=== PATIENT | female | born 1960 | race Caucasian/White ===

== ENCOUNTER 2016-12-28 10:08 | Emergency (ER) | payer OTHER ==
[~2016-12-28] VITALS: Ht 165.1 cm; Wt 80.3 kg
[~2016-12-28 10:08] MED LIST: PROZ20CA11 PO
[2016-12-28 10:18] VITALS: BP 112/67; PULSE 62; RESP 15; TEMP 98.7; O2SAT 95
[2016-12-28 10:42] LABS: BLOOD, URINE NEG (NEG); GLUCOSE,URINE NEG (NEG); KETONE, URINE NEG (NEG); NITRITE,URINE NEG (NEG); PH, URINE 6.5 (5.0-8.5)
[2016-12-28] MEDS ORDERED: KETOROLAC TROMETHAMINE 60 MG/2 ML (IM) VIAL IM ONE (10:45)
--- NOTE | 2016-12-28 10:46 | PD ---
HPI Chief Complaint: Pain: Acute or Chronic Time Seen by Provider: 10:33 Travel History International Travel<30 days: No Contact w/Intl Traveler<30days: No Traveled to known affect area: No History of Present Illness HPI 56-year-old female here with complaint of low back pain. Patient has had 3 days of a crampy, pressure in the low back. She denies any new heavy lifting, straining though the symptoms are made slightly worse with range of motion. Patient states that she has had some urinary frequency, hesitancy. No dysuria, hematuria. She denies any pain in the flank, nausea or vomiting. History of urinary tract infections in the past and states that she also didn't have very many symptoms with them previously. PFSH Past Medical History Depression: Yes Cancer: No Diabetes: No Diminished Hearing: No Hepatitis: No Hiatal Hernia: No Thyroid Disease: No ?: Not LMP: [employer] Menopausal: Yes Tubal Ligation: Yes Past Surgical History Abdominal Surgery: Yes (LAPAROSCOPIC TUBAL LIGATION) Cardiac Surgery: No Ear Surgery: No Endocrine Surgery: No Eye Surgery: No Genitourinary Surgery: No Gynecologic Surgery: Yes (TUBAL LIGATION) Oral Surgery: Yes (ADENOIDECTOMY) Pacemaker: No Thoracic Surgery: Yes (SANDRO BREAST AUGMENTATION) Tonsillectomy: Yes (ADENOIDS) Other Surgery: Yes (BREAST IMPLANTS) Social History Alcohol Use: Yes (3X PER WK) Tobacco Use: Yes (1/2 TO 3/4 PPD) Substance Use: No Allergies-Medications (Allergen,Severity, Reaction): Coded Allergies: No Known Allergies (Verified , 12/28/16) Reported Meds & Prescriptions Reported Meds & Active Scripts Active Pyridium (Phenazopyridine HCl) 200 Mg Tab 200 Mg PO Q8H PRN Macrobid (Nitrofurantoin Monoh/Nitrofur Macro) 100 Mg Cap 100 Mg PO BID 7 Days Review of Systems Except as stated in HPI: all other systems reviewed are Neg Physical Exam Narrative GENERAL: Well-appearing female in mild distress SKIN: Warm and dry. HEAD: Normocephalic. EYES: No scleral icterus. No injection or drainage. ENT: Mucous membranes pink and moist. NECK: Supple CARDIOVASCULAR: Regular rate and rhythm. RESPIRATORY: No accessory muscle use. GASTROINTESTINAL: Abdomen soft, non-tender, nondistended. Hepatic and splenic margins not palpable. No CVA tenderness to palpation MUSCULOSKELETAL: No tenderness to palpation in the midline cervical, thoracic, lumbar spine. No reproducible tenderness to palpation of the low back, but patient's pain is made slightly worse with movement NEUROLOGICAL: Awake and alert. 5 out of 5 strength and normal gait. Normal speech. PSYCHIATRIC: Appropriate mood and affect; insight and judgment normal. Data Data Last Documented VS Vital Signs Date Time Temp Pulse Resp B/P Pulse Ox O2 Delivery O2 Flow Rate FiO2 12/28/16 10:18 98.7 62 15 112/67 95 Orders Urinalysis - C+S If Indicated (12/28/16 10:21) Ketorolac Inj (Toradol Inj) (12/28/16 10:45) Urine Culture (12/28/16 10:28) Labs Laboratory Tests Test 12/28/16 10:28 Urine Collection Type CLEAN CATCH Urine Color YELLOW Urine Turbidity SLIGHT Urine pH 6.5 Urine Specific [place] 1.017 Urine Protein NEG mg/dL Urine Glucose (UA) NEG mg/dL Urine Ketones NEG mg/dL Urine Occult Blood NEG Urine Nitrite NEG Urine Bilirubin NEG Urine Leukocyte Esterase SMALL Urine RBC 0-3 /hpf Urine WBC 15-19 /hpf Urine Squamous Epithelial > 8 /hpf Cells Urine Bacteria MANY /hpf Microscopic Urinalysis Comment CULTURE INDICATED Urine Collection Time 10:28 [facility] Medical Decision Making Medical Screen Exam Complete: Yes Emergency Medical Condition: Yes Medical Record Reviewed: Yes Differential Diagnosis 56-year-old female here with complaint of 2-3 days of low back pain and urinary symptoms. Differential includes UTI, ureterolithiasis, musculoskeletal etiology such as lumbar strain Narrative Course Patient given 60 mg Toradol IM. Urinalysis showed leukocyte esterase with white cells and bacteria. Patient will be treated with Macrobid and Pyridium for home. Diagnosis Primary Impression: Cystitis Referrals: Primary Care Physician as needed Patient Instructions: General Instructions, Urinary Tract Infection in Women ( [place]) Additional Instructions: Finish antibiotics as prescribed. Pyridium as needed for pain. This will turn the urine neon orange. Med/Other Pt SpecificInfo: Prescription(s) given Scripts Phenazopyridine (Pyridium)200 Mg [id number] Mg PO Q8H PRN (DYSURIA) #6 TAB Ref 0 Prov:Jill Amezcua MD 12/28/16 Nitrofurantoin Monohydrate Macrocrystals (Macrobid)100 Mg [id number] Mg PO BID 7 Days Ref 0 Prov:Jill Amezcua MD 12/28/16 Disposition: 01 DISCHARGE HOME Condition: Stable Jill Amezcua MD Dec 28, 2016 10:46
[2016-12-28 10:48] LABS: METHOD OF COLLECTION CLEAN CATCH; URINE COLOR YELLOW (YELLW/STRAW)
[2016-12-28 10:49] LABS: BACTERIA, URINE MANY /hpf; COMMENT (UR) CULTURE INDICATED; CULTURE IF INDICATED CULTURE INDICATED; RBC, URINE 0-3 /hpf (0-3); SQUAMOUS EPITHELIAL CELL URINE > 8 /hpf (0-5); WBC, URINE 15-19 /hpf (0-5)
[2016-12-28] MEDS ORDERED: MACR100C2 PO (10:53)
[2016-12-28] MEDS ORDERED: PYRI200T4 PO (10:53)
== END 2016-12-28 11:19 | disposition home or self-care (01) ==
LOC: PHED 10:08
DX: N30.90 Cystitis, unspecified without hematuria (principal); B96.1 Klebsiella pneumoniae [K. pneumoniae] as the cause of diseases classified elsewhere
CPT/HCPCS: 81001; 87077; 87086; 87186; 96372; 99283; J1885